=== PATIENT | female | born 1980 | race Caucasian/White ===

== ENCOUNTER 2016-11-17 17:03 | Emergency (ER) | payer OTHER ==
[~2016-11-17] VITALS: Ht 167.6 cm; Wt 72.6 kg
[2016-11-17] MEDS ORDERED: DIAZEPAM 5 MG TABLET PO ONE (17:15)
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
[2016-11-17 18:00] VITALS: BP 103/56
[2016-11-17] MEDS ORDERED: HYDR-971 PO (18:16)
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
== END 2016-11-17 18:30 | disposition home or self-care (01) ==
LOC: ER 17:03
DX: S16.1XXA Strain of muscle, fascia and tendon at neck level, initial encounter (principal); S80.12XA Contusion of left lower leg, initial encounter; V49.88XA Car occupant (driver) (passenger) injured in other specified transport accidents, initial encounter; Y93.89 Activity, other specified; Y99.8 Other external cause status; Y92.488 Other paved roadways as the place of occurrence of the external cause
CPT/HCPCS: 72040; 73590; 99284

== ENCOUNTER 2016-11-21 11:16 | Emergency (ER) | payer OTHER ==
[~2016-11-21] VITALS: Ht 167.6 cm; Wt 68.0 kg
[~2016-11-21 11:16] MED LIST: HYDR-971 PO
[2016-11-21 11:42] VITALS: BP 122/70
[2016-11-21] MEDS ORDERED: HYDR-971 PO (12:18)
[2016-11-21] MEDS ORDERED: CYCL10TA2 PO (12:18)
[2016-11-21] MEDS ORDERED: DICL100G7 TP (12:18)
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
== END 2016-11-21 12:29 | disposition home or self-care (01) ==
LOC: ER 11:16
DX: S13.9XXD Sprain of joints and ligaments of unspecified parts of neck, subsequent encounter (principal); S80.12XD Contusion of left lower leg, subsequent encounter; F43.10 Post-traumatic stress disorder, unspecified; V87.7XXD Person injured in collision between other specified motor vehicles (traffic), subsequent encounter; Y93.89 Activity, other specified; Y99.8 Other external cause status; Y92.488 Other paved roadways as the place of occurrence of the external cause
CPT/HCPCS: 99283

== ENCOUNTER 2017-07-29 22:11 | Emergency (ER) | payer OTHER ==
[~2017-07-29] VITALS: Ht 167.6 cm; Wt 69.9 kg
[~2017-07-29 22:11] MED LIST changes: +CYCL10TA2 PO; +DICL100G18 TP
[2017-07-29] MEDS ORDERED: ONDANSETRON ODT 4 MG TAB.RAPDIS. PO ONE (23:00)
[2017-07-29] MEDS ORDERED: IBUPROFEN 800 MG TABLET. PO ONE (23:00)
[2017-07-29] MEDS ORDERED: IPRATRPIUM/ALBUTEROL 0.5/2.5MG 3 ML NEBU. NEB ONE (23:00)
[2017-07-29 23:05] LABS: OBC FLU VALID
[2017-07-29] MEDS ORDERED: ONDA4TAB10 PO (23:29)
[2017-07-29] MEDS ORDERED: METH4TAB2 PO (23:29)
[2017-07-29] MEDS ORDERED: PROAIR HFA8.5 GM INH (23:29)
--- NOTE | 2017-07-29 23:29 | PHYS DOC ---
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 She has had chills for 3 days. Unknown if fever as she does not have a thermometer. Nausea but no vomiting. Diarrhea x 2 today; no blood. She took Nyquil one hour ago; no motrin. Review of Systems Review of Systems Constitutional: Denies fever or chills Eyes: Denies change in visual acuity, redness, or eye pain HENT: POS nasal congestion denies sore throat Respiratory: POS cough but no shortness of breath Cardiovascular: denies chest pain GI: Denies abdominal pain, POS nausea, but no vomiting, bloody stools and POS diarrhea : Denies dysuria or hematuria Musculoskeletal: Denies back pain or joint pain Integument: POS rash back but no skin lesions Neurologic: Denies headache, focal weakness or sensory changes All other systems were reviewed and found to be within normal limits, except as documented in this note. Current Medications Current Medications Current Medications Medications (Trade) Dose Ordered Sig/Jeanine Start Time Stop Time Status Last Admin Dose Admin Albuterol/ Ipratropium (Duoneb) 3 ml 1X ONCE 07/29/17 23:00 07/29/17 23:01 DC 07/29/17 23:07 3 ML Ibuprofen (Motrin) 800 mg 1X ONCE 07/29/17 23:00 07/29/17 23:01 DC 07/29/17 23:04 800 MG Ondansetron HCl (Zofran Odt) 4 mg 1X ONCE 07/29/17 23:00 07/29/17 23:01 DC 07/29/17 23:04 4 MG Allergies Allergies Allergies Coded Allergies Type Severity Reaction Last Updated Verified No Known Drug Allergies 11/17/16 No Physical Exam Physical Exam Constitutional: Well developed, well nourished, no acute distress, non-toxic appearance. HENT: Normocephalic, atraumatic, TM clear bilaterally; bilateral external ears normal, oropharynx moist, no oral exudates, nose normal. Eyes: PERRLA, EOMI, conjunctiva normal, no discharge. Neck: Normal range of motion, no tenderness, supple, no stridor. Cardiovascular:Heart rate regular rhythm, no murmur Lungs & Thorax: Bilateral breath sounds clear to auscultation; coarse rhonchi. Abdomen: Bowel sounds normal, soft, no tenderness, no masses, no pulsatile masses. Skin: Warm, dry, no erythema; circular patch with red raised border and central clearing with scaling of skin on mid upper back. Back: No tenderness, no CVA tenderness. Extremities: No tenderness, no cyanosis, no clubbing, ROM intact, no edema. Neurologic: Alert and oriented X 3, normal motor function, normal sensory function, no focal deficits noted. Psychologic: Affect normal, judgement normal, mood normal. Current Patient Data Vital Signs Vital Signs Date Time Temp Pulse Resp B/P (MAP) Pulse Ox O2 Delivery O2 Flow Rate FiO2 07/29/17 23:50 78 20 107/77 (87) 98 07/29/17 23:07 Room Air 07/29/17 22:43 98.3 98.3 Lab Values Laboratory Tests Test 07/29/17 22:35 Influenza Type A Antigen Negative (NEGATIVE) Influenza Type B Antigen Negative (NEGATIVE) Radiology/Procedures Radiology/Procedures CXR interpreted by myself at 2300 PM with a cardiac silhouette, no pleural effusions, normal mediastinum, no acute infiltrates. Course & Med Decision Making Course & Med Decision Making Evaluated patient. Influenza swab sent. Duoneb dosed. CXR negative. Flu negative. Home with Albuterol inhaler and medrol dose edwina. I have spoken with the patient and/or caregivers. I have explained the patient' s condition, diagnosis and treatment plan based on the information available to me at this time. I have answered the patient's and/or caregiver's questions and addressed any concerns. The patient and/or caregivers have as good an understanding of the patient's diagnosis, condition and treatment plan as can be expected at this point. The patient's condition is stable and appropriate for discharge from the emergency department. The patient will pursue further outpatient evaluation with the primary care physician or other designated or consulting physician as outlined in the discharge instructions. The patient and/or caregivers are agreeable to this plan of care and follow-up instructions have been explained in detail. The patient and/or caregivers have received these instructions in written format and have expressed an understanding of the discharge instructions. The patient and/or caregivers are aware that any significant change in condition or worsening of symptoms should prompt an immediate return to this or the closest emergency department or a call to 911.She has viral syndrome; home with inhaler and medrol dose edwina. Dragon Disclaimer Dragon Disclaimer This electronic medical record was generated, in whole or in part, using a voice recognition dictation system. Departure Departure Impression: Primary Impression: Viral syndrome Additional Impressions: Cough Tinea corporis Disposition: HOME, SELF-CARE Condition: STABLE Referrals: MELBA MERCEDES MD (PCP) Patient Instructions: Viral Syndrome Additional Instructions: YOU WERE GIVEN A BREATHING TREATMENT HERE AND STEROIDS. USE THE CREAM ON YOUR BACK TWICE A DAY UNTIL CLEARED. Scripts Albuterol Sulfate (PROAIR HFA INHALER) 8.5 Gm Hfa.aer.ad 1 PUFF INH PRN Q6HRS Y for SHORTNESS OF BREATH, #1 INHALER 0 Refills Prov: JULIANNE UNGER MD 07/29/17 Methylprednisolone (MEDROL) 4 Mg Tab.ds.pk 1 PKG PO UD, #1 PKG Prov: JULIANNE UNGER MD 07/29/17 Ondansetron (ZOFRAN ODT) 4 Mg Tab.rapdis 4 MG PO BID Y for NAUSEA/VOMITING, #10 TAB Prov: JULIANNE UNGER MD 07/29/17 Problem Qualifiers JULIANNE UNGER MD Jul 29, 2017 23:29
[2017-07-29 23:50] VITALS: BP 107/77
--- NOTE | 2017-07-30 07:40 | RAD ---
EXAM: Chest 2 views. HISTORY: Cough and fever. COMPARISON: None. FINDINGS: Frontal and lateral views of the chest are obtained. There are no confluent infiltrates. There is no pneumothorax or pleural effusion. The heart is not enlarged. IMPRESSION: 1. No confluent infiltrates.
== END 2017-07-29 23:53 | disposition home or self-care (01) ==
LOC: ER 22:11
DX: B34.9 Viral infection, unspecified (principal); B35.4 Tinea corporis; J45.909 Unspecified asthma, uncomplicated; F43.10 Post-traumatic stress disorder, unspecified; Z90.710 Acquired absence of both cervix and uterus; Z90.49 Acquired absence of other specified parts of digestive tract; Z87.891 Personal history of nicotine dependence
CPT/HCPCS: 71020; 87804; 94250; 94640; 99285; J7620; Q0162

== ENCOUNTER → 2017-11-24 | Outpatient (CLI) | payer OTHER | END | disposition home or self-care (01) | LOC: MRI 10:24 | DX: M47.892 Other spondylosis, cervical region (principal); M48.02 Spinal stenosis, cervical region; M40.292 Other kyphosis, cervical region | CPT/HCPCS: 72141 ==

== ENCOUNTER → 2017-12-12 | Outpatient (CLI) | payer OTHER ==
[~2017-12-12] MED LIST changes: -CYCL10TA2 PO; -DICL100G18 TP; -HYDR-971 PO; +IOHEXOL 180 MG/ML 10 ML VIAL.; +methylPREDNISolone ACETATE 40 MG/ML VIAL.; +methylPREDNISolone ACETATE 80 MG/ML VIAL.
== END ==
LOC: PNCL 07:44
DX: M50.123 Cervical disc disorder at C6-C7 level with radiculopathy (principal); M48.02 Spinal stenosis, cervical region; M19.90 Unspecified osteoarthritis, unspecified site; J45.998 Other asthma; F17.210 Nicotine dependence, cigarettes, uncomplicated; Z91.018 Allergy to other foods; Z98.51 Tubal ligation status; Z90.710 Acquired absence of both cervix and uterus; Z98.890 Other specified postprocedural states; F31.89 Other bipolar disorder; F41.8 Other specified anxiety disorders; Z79.899 Other long term (current) drug therapy
CPT/HCPCS: 62321; J1030; J1040; Q9965

== ENCOUNTER → 2017-12-23 | Outpatient (CLI) | payer OTHER | LOC: PNCL 07:32 | DX: M50.123 Cervical disc disorder at C6-C7 level with radiculopathy (principal) | CPT/HCPCS: 62321; J1030; J1040; Q9965 ==

== ENCOUNTER → 2018-01-06 | Outpatient (CLI) | payer OTHER | END | disposition home or self-care (01) | LOC: PNCL 07:51 | DX: M50.123 Cervical disc disorder at C6-C7 level with radiculopathy (principal); M48.02 Spinal stenosis, cervical region; Z91.018 Allergy to other foods | CPT/HCPCS: 62321; J1030; J1040; Q9965 ==